=== PATIENT | female | born 1995 | race Caucasian/White ===

== ENCOUNTER 2022-04-24 18:02 | Emergency (ER) | payer OTHER ==
[~2022-04-24] VITALS: Ht 160 cm; Wt 64.4 kg
[2022-04-24 18:10] VITALS: BP 109/66
[2022-04-24 19:53] LABS: BASOPHILS # (AUTO) 0.1 K/uL (0.00-0.22); BASOPHILS % (AUTO) 0.7 % (0.0-2.0); EOSINOPHILS # (AUTO) 0.1 K/uL (0-0.4); EOSINOPHILS % (AUTO) 1.9 % (0.0-4.0); HEMATOCRIT 47.7 % (36-48); HEMOGLOBIN 16.2 g/dL (12.0-16.0); LYMPHOCYTES # (AUTO) 1.7 K/uL (2.5-16.5); LYMPHOCYTES % (AUTO) 24.4 % (20.5-51.1); MEAN CORPUSCULAR HEMOGLOBIN 30 pg (27-31); MEAN CORPUSCULAR HGB CONC 34 g/dL (33-37); MEAN CORPUSCULAR VOLUME 86.6 fL (80-94); MONOCYTES # (AUTO) 0.5 K/uL (0.8-1.0); NEUTROPHILS # (AUTO) 4.7 K/uL (1.8-7.7); PLATELET COUNT (AUTO) 260 K/uL (140-450); RED BLOOD CELL COUNT(AUTO) 5.51 MIL/uL (4.20-5.40); RED CELL DISTRIBUTION WIDTH 13.3 % (11.6-13.7); WHITE BLOOD COUNT (AUTO) 7.1 K/uL (4.8-10.8)
[2022-04-24 20:40] LABS: ALBUMIN 4.4 g/dL (3.4-5.0); ANION GAP 13.1 (8-16); ASPARTATE AMINOTRANSFERASE 21 U/L (15-37); CARBON DIOXIDE 28.1 mmol/L (21-32); CHLORIDE 102 mmol/L (98-107); CREATININE 0.7 mg/dL (0.6-1.3); GFR ARICAN-AMERICAN 130 mL/min (>90); GLUCOSE 94 mg/dL (74-106); POTASSIUM 4.2 mmol/L (3.5-5.1); SODIUM SERUM 139 mmol/L (136-145); TOTAL BILIRUBIN 0.6 mg/dL (0.0-1.0); UREA NITROGEN, BLOOD 9 mg/dL (7-18)
--- NOTE | 2022-04-24 21:22 | NUR ---
PT TO BED #11
--- NOTE | 2022-04-24 21:44 | NUR ---
Patient lying in bed, A/Ox4, chest rise and fall symmetrical, no s/s of distress. Addendum: 04/24/22 at 2144 by [email or web address] Patient lying in bed, A/Ox4, chest rise and fall symmetrical, no s/s of distress, patient on monitor.
--- NOTE | 2022-04-24 21:47 | NUR ---
ER physician at bedside assessing patient.
[2022-04-24] MEDS ORDERED: IBUP-2213 PO (21:48)
[2022-04-24 22:04] VITALS: BP 108/63
== END 2022-04-24 22:04 | disposition home or self-care (01) ==
LOC: MED 18:02
DX: R07.9 Chest pain, unspecified (principal); R06.02 Shortness of breath
CPT/HCPCS: 36415; 71045; 80053; 84484; 85025; 85379; 93005; 99285

== ENCOUNTER 2022-07-29 17:00 | Emergency (ER) | payer OTHER ==
[~2022-07-29] VITALS: Ht 160 cm; Wt 62.6 kg
[~2022-07-29 17:00] MED LIST: IBUP-2213 PO
[2022-07-29 17:23] VITALS: BP 130/72
--- NOTE | 2022-07-29 17:30 | NUR ---
27/F WALKED IN C/O LEFT EAR ACHE AND LEFT EYELID SWELLING X 1 DAY. DENIES FEVER. AFEBRILE AT TRIAGE. DENIES DRAINAGE. AAO4, AMBULATORY, VITALS STABLE. NKA PMH: DENIES
[2022-07-29] MEDS ORDERED: IBUP-1842 PO (17:31)
[2022-07-29] MEDS ORDERED: AMOX500C25 PO (17:31)
[2022-07-29] MEDS ORDERED: OFLO5SOL27 LEFT EAR (17:31)
== END 2022-07-29 17:45 | disposition home or self-care (01) ==
LOC: MED 17:00
DX: H60.92 Unspecified otitis externa, left ear (principal); H66.92 Otitis media, unspecified, left ear; Z79.899 Other long term (current) drug therapy
CPT/HCPCS: 99283

== ENCOUNTER 2023-09-22 13:42 | Emergency (ER) | payer OTHER ==
[~2023-09-22] VITALS: Ht 157.5 cm; Wt 57.3 kg
[~2023-09-22 13:42] MED LIST changes: +AMOX500C25 PO; +IBUP-1842 PO; +OFLO5SOL27 LEFT EAR
[2023-09-22 13:55] VITALS: BP 110/64; PULSE 100; RESP 20; TEMP 98.2; O2SAT 97
[2023-09-22] MEDS ORDERED: LIDO4CRE18 TP (14:56)
== END 2023-09-22 14:57 | disposition home or self-care (01) ==
LOC: MED 13:42
DX: K64.4 Residual hemorrhoidal skin tags (principal); Z79.1 Long term (current) use of non-steroidal anti-inflammatories (NSAID); Z79.2 Long term (current) use of antibiotics
CPT/HCPCS: 99282

== ENCOUNTER 2023-10-08 12:51 | Emergency (ER) | payer OTHER ==
[~2023-10-08] VITALS: Ht 157.5 cm; Wt 56.7 kg
[~2023-10-08 12:51] MED LIST changes: +LIDO4CRE18 TP
[2023-10-08 13:24] VITALS: BP 123/68; PULSE 99; RESP 18; TEMP 98.3; O2SAT 98
[2023-10-08 13:50] VITALS: O2SAT 98
[2023-10-08] MEDS ORDERED: MIRABULK PO (14:11)
[2023-10-08] MEDS ORDERED: HYDR25SU91 RC (14:11)
[2023-10-08] MEDS ORDERED: IBUP-2213 PO (14:11)
[2023-10-08] MEDS: IBUPROFEN 600 MG TAB PO ONE (14:14)
[2023-10-08 14:45] VITALS: BP 122/62; PULSE 88; RESP 16; TEMP 98.3; O2SAT 98
== END 2023-10-08 14:45 | disposition home or self-care (01) ==
LOC: MED 12:51 → EDSEX 12:51 → MED 14:45
DX: K64.4 Residual hemorrhoidal skin tags (principal); K59.00 Constipation, unspecified; Z79.899 Other long term (current) drug therapy
CPT/HCPCS: 99283

== ENCOUNTER 2023-11-03 18:18 | Emergency (ER) | payer OTHER ==
[~2023-11-03] VITALS: Ht 160 cm; Wt 55.3 kg
[~2023-11-03 18:18] MED LIST changes: +HYDR25SU91 RC; +MIRABULK PO
[2023-11-03 18:49] VITALS: BP 99/65; PULSE 124; RESP 20; TEMP 97.9; O2SAT 98
[2023-11-03] MEDS ORDERED: CETI10SG1 PO (20:39)
[2023-11-03] MEDS ORDERED: KEN.1C TP (20:39)
[2023-11-03] MEDS: predniSONE 20 MG TAB PO ONE (20:39)
[2023-11-03] MEDS: FAMOTIDINE 20 MG TAB PO ONE (20:39)
[2023-11-03] MEDS: diphenhydrAMINE 50 MG CAP PO ONE (20:40)
[2023-11-03 20:42] VITALS: BP 99/65; PULSE 124; RESP 20; TEMP 97.9; O2SAT 98
== END 2023-11-03 20:42 | disposition home or self-care (01) ==
LOC: MED 18:18
DX: L50.9 Urticaria, unspecified (principal); Z79.1 Long term (current) use of non-steroidal anti-inflammatories (NSAID); Z79.2 Long term (current) use of antibiotics; Z79.899 Other long term (current) drug therapy
CPT/HCPCS: 99284; J7512; Q0163